=== PATIENT | male | born 1945 | race Caucasian/White ===

== ENCOUNTER 2020-12-31 19:16 | Emergency (ER) | payer MEDICARE, OTHER ==
[~2020-12-31] VITALS: Ht 182.9 cm; Wt 112.0 kg
--- NOTE | 2020-12-31 19:17 | NUR ---
[id number] C/O PAINFUL URINATION, HAS CARD FOR 1x MONTH FROM HOSPITAL. [id number] C/O PAINFUL URINATION, HAS CARD FOR 1x MONTH FROM HOSPITAL
--- NOTE | 2020-12-31 20:00 | NUR ---
PT ABLE TO URINATE W/O F/C
--- NOTE | 2020-12-31 20:00 | NUR ---
PT CAME IN WITH F/C AND IN SINCE NOVEMBER 24. REMOVED F/C TO COLLECT URINE AND PT REFUSED TO REINSERT F/C. EDUCATED PT AND PT VERBALIZES UNDERSTANDING
--- NOTE | 2020-12-31 20:00 | NUR ---
URINE COLLECTED AND SENT TO LAB
[2020-12-31 20:21] LABS: BILIRUBIN,URINE Negative (NEGATIVE); COLOR,URINE DARK YELLOW (YELLOW); LEUKOCYTE ESTERASE ,URINE Small (NEGATIVE); NITRITE, URINE Positive (NEGATIVE); PH,URINE 5.5 (5.0-8.0); PROTEIN,URINE 30 mg/dl (NEGATIVE); UGLUCOSE Negative (NEGATIVE); UROBILINOGEN,URINE 0.2 EU/dL (0.2)
[2020-12-31 20:40] LABS: BACTERIA,URINE 4+ /HPF (None Seen); RBC,URINE 51-80 /HPF (0-2); SQUAMOUS EPITHELIAL CELL,UR 0-2 /HPF (None Seen); WBC,URINE 21-50 /HPF (0-3)
[2020-12-31] MEDS ORDERED: CEPH500C2 PO (20:43)
[2020-12-31 20:55] VITALS: BP 125/75
--- NOTE | 2020-12-31 22:03 | NUR ---
[facility] ETA 90 MINUTES.
--- NOTE | 2020-12-31 22:20 | NUR ---
NOTIFIED MIRANDA (DAUGHTER) THAT AMBULANCE ETA IS 90 MINUTES.
--- NOTE | 2020-12-31 23:22 | NUR ---
Patient discharged to home in stable condition [facility]. RX Written and verbal after care instructions given TO DAUGHTER. Patient verbalizes understanding of instruction.
== END 2020-12-31 23:22 | disposition home or self-care (01) ==
LOC: ER 19:20
DX: N39.0 Urinary tract infection, site not specified (principal); I10 Essential (primary) hypertension; E11.9 Type 2 diabetes mellitus without complications
CPT/HCPCS: 81001; 87086-TC; 87186-TC

== ENCOUNTER 2022-01-14 18:41 | Inpatient (IN) | payer MEDICARE, OTHER ==
[~2022-01-14] VITALS: Ht 182.9 cm; Wt 119.7 kg
[2022-01-14] VITALS: BP 144/80
[~2022-01-14 18:41] MED LIST: CEPH500C2 PO
[2022-01-14] MEDS ORDERED: CEFEPIME 1 GM in IV D5W 50 ML IV ONE (20:30)
[2022-01-14] MEDS ORDERED: VANCOMYCIN 1 GM in IV D5W 250 ML IV ONE (20:30)
[2022-01-14] MEDS ORDERED: CEFEPIME 1 GM VIAL ONE (21:00)
[2022-01-14 21:12] LABS: BASOPHILS # (AUTO) 0.1 K/uL (0.0-0.2); BASOPHILS % (AUTO) 1.1 % (0.0-2.0); EOSINOPHILS % (AUTO) 3.3 % (0.0-6.0); HEMATOCRIT 42 % (39-51); LYMPHOCYTES # (AUTO) 2.6 K/uL (0.8-4.8); LYMPHOCYTES % (AUTO) 40.7 % (20.0-44.0); MEAN CORPUSCULAR HGB CONC 33 g/dl (31.0-36.0); MEAN CORPUSCULAR VOLUME 93 fL (80-96); MONOCYTES # (AUTO) 0.7 K/uL (0.1-1.30); MONOCYTES % (AUTO) 10.5 % (2.0-12.0); NEUTROPHILS # (AUTO) 2.9 K/uL (1.8-8.9); NEUTROPHILS % (AUTO) 44.4 % (43.0-81.0); PLATELET COUNT (AUTO) 236 K/uL (150-450); RED BLOOD CELL COUNT(AUTO) 4.55 MIL/uL (4.5-6.0); WHITE BLOOD COUNT (AUTO) 6.4 K/uL (4.3-11.0)
[2022-01-14 21:19] LABS: CARBON DIOXIDE 31 mmol/L (21-32); CHLORIDE 98 mmol/L (98-107); CREATININE 1.3 mg/dL (0.6-1.3); GLUCOSE 129 mg/dL (74-106); POTASSIUM 4.1 mmol/L (3.5-5.1); SODIUM SERUM 136 mmol/L (136-145); UREA NITROGEN, BLOOD 15 mg/dL (7-18)
[2022-01-14] MEDS ORDERED: VANCOMYCIN 1 GM VIAL ONE ×2 (21:26→23:04)
[2022-01-14] MEDS ORDERED: ONDANSETRON HCL/PF 4 MG/2 ML VIAL IVP PRN (22:30)
[2022-01-14] MEDS ORDERED: DEXTROSE 50%-WATER 50 ML DISP.SYRIN IV PRN (22:30)
[2022-01-14] MEDS ORDERED: MAGNESIUM HYDROXIDE 30 ML UDC PO PRN (22:30)
[2022-01-14] MEDS ORDERED: Z GUARD REMEDY 4 OZ OINT TP PRN (22:30)
[2022-01-14] MEDS ORDERED: HYDROCODONE/APAP 5/325MG TABLET PO PRN (22:30)
[2022-01-14] MEDS ORDERED: ACETAMINOPHEN 325 MG TABLET PO PRN (22:30)
[2022-01-14] MEDS ORDERED: ZOLPIDEM TARTRATE 5 MG TABLET PO PRN (22:30)
[2022-01-14] MEDS ORDERED: MAG HYDROX/AL HYDROX/SIMETH 30 ML UDC PO PRN (22:30)
[2022-01-14 23:00] VITALS: BP 144/80
[2022-01-14] MEDS: VANCOMYCIN 1 GM in IV D5W 250ml IV ONE ×2 (23:10→23:32)
[2022-01-15 01:12] LABS: BILIRUBIN,DIRECT 0.1 mg/dL (0.0-0.2); BILIRUBIN,TOTAL 0.4 mg/dL (0.2-1.0)
[2022-01-15 04:00] VITALS: BP 116/61
[2022-01-15 05:53] LABS: BASOPHILS % (AUTO) 0.6 % (0.0-2.0); EOSINOPHILS % (AUTO) 2.2 % (0.0-6.0); HEMATOCRIT 38 % (39-51); HEMOGLOBIN 12.6 g/dL (13.5-17.5); LYMPHOCYTES # (AUTO) 1.5 K/uL (0.8-4.8); LYMPHOCYTES % (AUTO) 21.6 % (20.0-44.0); MEAN CORPUSCULAR HGB CONC 33 g/dl (31.0-36.0); MEAN CORPUSCULAR VOLUME 91 fL (80-96); MONOCYTES # (AUTO) 0.8 K/uL (0.1-1.30); MONOCYTES % (AUTO) 11.2 % (2.0-12.0); NEUTROPHILS # (AUTO) 4.4 K/uL (1.8-8.9); NEUTROPHILS % (AUTO) 64.4 % (43.0-81.0); PLATELET COUNT (AUTO) 211 K/uL (150-450); RED BLOOD CELL COUNT(AUTO) 4.18 MIL/uL (4.5-6.0); WHITE BLOOD COUNT (AUTO) 6.9 K/uL (4.3-11.0)
[2022-01-15] MEDS: BLOOD SUGAR DIAGNOSTIC 1 EACH STRIP IN SCH ×4 (06:31→22:29)
[2022-01-15 07:09] LABS: CALCIUM, SERUM 8.3 mg/dL (8.5-10.1); CREATININE 1.2 mg/dL (0.6-1.3); MAGNESIUM 1.8 mg/dL (1.8-2.4); POTASSIUM 3.4 mmol/L (3.5-5.1)
[2022-01-15 08:00] VITALS: BP 128/74
[2022-01-15] MEDS: ENOXAPARIN SODIUM 40 MG/0.4 ML DISP.SYRIN SQ SCH (08:40)
[2022-01-15] MEDS: CEFTRIAXONE 2 G in IV D5W 100 ML IV SCH (08:43)
[2022-01-15] MEDS: METFORMIN 500 MG TABLET PO SCH ×2 (09:10→16:46)
[2022-01-15 09:40] VITALS: BP 127/53
[2022-01-15] MEDS ORDERED: POTASSIUM CHLORIDE 20 MEQ TAB.PRT.SR PO SCH (10:00)
[2022-01-15] MEDS: VANCOMYCIN 0.75 GM in IV D5W 250 ML IV SCH ×2 (10:05→22:24)
[2022-01-15] MEDS: INSULIN REGULAR, HUMAN 100 UNIT/ML 3 ML VIAL SQ PRN ×2 (11:28→22:35)
[2022-01-15] MEDS ORDERED: POTA8TAB3 PO (12:02)
[2022-01-15] MEDS ORDERED: LIDO30AD10 TP (12:02)
[2022-01-15] MEDS ORDERED: DICL100G34 TP (12:02)
[2022-01-15] MEDS ORDERED: FURO40TA5 PO (12:02)
[2022-01-15] MEDS ORDERED: ESOM40CA52 PO (12:02)
[2022-01-15] MEDS ORDERED: AMIO200T5 PO (12:02)
[2022-01-15] MEDS ORDERED: TAMS-12 PO (12:02)
[2022-01-15] MEDS ORDERED: CHOL100043 PO (12:02)
[2022-01-15] MEDS ORDERED: MISO200T62 PO (12:02)
[2022-01-15] MEDS ORDERED: DICL1PAT7 TD (12:02)
[2022-01-15] MEDS ORDERED: PREG50CA PO (12:02)
[2022-01-15] MEDS ORDERED: TRAM50TA2 PO (12:02)
[2022-01-15] MEDS ORDERED: IBUP-1955 PO (12:02)
[2022-01-15] MEDS ORDERED: DUTA0.5C PO (12:02)
[2022-01-15] MEDS ORDERED: ASPI-1420 PO (12:02)
[2022-01-15] MEDS ORDERED: LOSA1TAB36 PO (12:02)
[2022-01-15] MEDS ORDERED: CILO100T PO (12:02)
[2022-01-15] MEDS ORDERED: ACET-907 PO (12:02)
[2022-01-15] MEDS ORDERED: TADA5TAB2 PO (12:02)
[2022-01-15] MEDS ORDERED: EZET10TA32 PO (12:02)
[2022-01-15 16:00] VITALS: BP_SYST 116; BP_SYST 120; BP_SYST 129; BP_DIAS 61
[2022-01-15 20:00] VITALS: BP 114/63
[2022-01-16 06:32] LABS: CALCIUM, SERUM 8.7 mg/dL (8.5-10.1); CARBON DIOXIDE 34 mmol/L (21-32); CHLORIDE 102 mmol/L (98-107); CREATININE 1.2 mg/dL (0.6-1.3); GLUCOSE 116 mg/dL (74-106); POTASSIUM 3.5 mmol/L (3.5-5.1); SODIUM SERUM 140 mmol/L (136-145); UREA NITROGEN, BLOOD 15 mg/dL (7-18)
[2022-01-16] MEDS: BLOOD SUGAR DIAGNOSTIC 1 EACH STRIP IN SCH ×4 (06:58→21:31)
[2022-01-16] MEDS: INSULIN REGULAR, HUMAN 100 UNIT/ML 3 ML VIAL SQ PRN ×2 (06:58→12:32)
[2022-01-16 08:00] VITALS: BP 137/65
[2022-01-16] MEDS: METFORMIN 500 MG TABLET PO SCH (09:16)
[2022-01-16] MEDS: ENOXAPARIN SODIUM 40 MG/0.4 ML DISP.SYRIN SQ SCH (09:18)
[2022-01-16] MEDS: CEFTRIAXONE 2 G in IV D5W 100 ML IV SCH (09:20)
[2022-01-16] MEDS ORDERED: IBUPROFEN 600 MG TABLET PO PRN (10:00)
[2022-01-16] MEDS: VANCOMYCIN 0.75 GM in IV D5W 250 ML IV SCH ×2 (10:12→21:31)
[2022-01-16 16:07] VITALS: BP 138/65
[2022-01-16] MEDS ORDERED: DICLOFENAC TOPICAL 100 GM GEL..GM. TP SCH (17:00)
[2022-01-16] MEDS: PREGABALIN 25 MG CAPSULE PO SCH (17:26)
[2022-01-16] MEDS: TAMSULOSIN 0.4 MG CAP.SR.24H PO SCH (17:27)
[2022-01-16] MEDS: CILOSTAZOL 100 MG TABLET PO SCH (17:27)
[2022-01-16] MEDS: MISOPROSTOL 100 MCG TABLET PO SCH (17:41)
[2022-01-16 20:21] VITALS: BP 145/92
[2022-01-17] MEDS: BLOOD SUGAR DIAGNOSTIC 1 EACH STRIP IN SCH ×3 (06:38→18:17)
[2022-01-17] MEDS: INSULIN REGULAR, HUMAN 100 UNIT/ML 3 ML VIAL SQ PRN ×2 (06:38→11:27)
[2022-01-17 06:51] VITALS: BP 145/92
[2022-01-17] MEDS ORDERED: PANTOPRAZOLE 40 MG TABLET.DR PO SCH (07:30)
[2022-01-17 07:38] LABS: CALCIUM, SERUM 8.8 mg/dL (8.5-10.1); CREATININE 1.2 mg/dL (0.6-1.3); POTASSIUM 3.3 mmol/L (3.5-5.1)
[2022-01-17 08:00] VITALS: BP 113/62
[2022-01-17] MEDS: CEFTRIAXONE 2 G in IV D5W 100 ML IV SCH (08:14)
[2022-01-17] MEDS: PREGABALIN 25 MG CAPSULE PO SCH ×2 (08:15→17:02)
[2022-01-17] MEDS: CILOSTAZOL 100 MG TABLET PO SCH ×2 (08:15→17:02)
[2022-01-17] MEDS: MISOPROSTOL 100 MCG TABLET PO SCH ×2 (08:16→17:01)
[2022-01-17] MEDS: ENOXAPARIN SODIUM 40 MG/0.4 ML DISP.SYRIN SQ SCH (08:23)
[2022-01-17] MEDS ORDERED: DUTASTERIDE (0.5 MG) 0.5 MG CAPSULE PO SCH (09:00)
[2022-01-17] MEDS ORDERED: ASPIRIN EC 81 MG TABLET.DR PO SCH (09:00)
[2022-01-17] MEDS ORDERED: LIDOCAINE 5% (PATCH) 1 EA PATCH TP SCH (09:00)
[2022-01-17] MEDS ORDERED: EZETIMIBE 10 MG TABLET PO SCH (09:00)
[2022-01-17] MEDS ORDERED: LOSARTAN/HCTZ 50-12.5MG/ 1 EA TABLET PO SCH (09:00)
[2022-01-17] MEDS ORDERED: AMIODARONE HCL 200 MG TABLET PO SCH (09:00)
[2022-01-17] MEDS ORDERED: FUROSEMIDE 40 MG TABLET PO SCH (09:00)
[2022-01-17] MEDS: VANCOMYCIN 0.75 GM in IV D5W 250 ML IV SCH (10:11)
[2022-01-17] MEDS ORDERED: POTASSIUM CHLORIDE 20 MEQ TAB.PRT.SR PO ONE (11:00)
[2022-01-17] MEDS ORDERED: CLIN300C12 PO (14:31)
[2022-01-17 16:00] VITALS: BP 121/69
[2022-01-17] MEDS: TAMSULOSIN 0.4 MG CAP.SR.24H PO SCH (17:02)
== END 2022-01-17 20:00 | disposition home or self-care (01) | DRG 602 ==
LOC: ER 18:53 → MED 21:57 → TELE 22:56 → MED 01-15 00:04
PROVIDERS: ADMIT Nurse Practitioner Family; ATTEND Nurse Practitioner Acute Care
DX: L03.115 Cellulitis of right lower limb (principal); N17.0 Acute kidney failure with tubular necrosis; E87.2 Acidosis; I87.311 Chronic venous hypertension (idiopathic) with ulcer of right lower extremity; L97.819 Non-pressure chronic ulcer of other part of right lower leg with unspecified severity; I10 Essential (primary) hypertension; M19.90 Unspecified osteoarthritis, unspecified site; E87.6 Hypokalemia; Z20.822 Contact with and (suspected) exposure to COVID-19; Z89.612 Acquired absence of left leg above knee; E11.51 Type 2 diabetes mellitus with diabetic peripheral angiopathy without gangrene; M79.661 Pain in right lower leg; I87.2 Venous insufficiency (chronic) (peripheral)
CPT/HCPCS: 36415; 73630-TC; 80048-TC; 80061-TC; 80202-TC; 82247-TC; 82248-TC; 82962-TC; 83605-TC; 83735-TC; 85025-TC; 85652-TC; 86140-TC; 87040-TC; 87081-TC; 93971-TC; A6253; A6403; G0378; J0692; J0696; J1650; J1815; J3370; J7050; J7060